=== PATIENT | male | born 1995 | race Two or more races ===

== ENCOUNTER 2020-04-19 23:58 | Emergency (ER) | payer MEDICAID, OTHER ==
[~2020-04-19] VITALS: Ht 167.6 cm; Wt 64.9 kg
[2020-04-20 00:21] VITALS: BP 121/80
[2020-04-20 01:48] LABS: Urine Bacteria NONE SEEN /hpf (None Seen); Urine Blood Negative /uL (Negative); Urine Specific Gravity 1.016 (1.001-1.035); Urine WBC 1 /hpf (0 - 3)
[2020-04-20 01:59] LABS: Alcohol, Urine < 3.0 mg/dL (0-10); Amphetamine Screen, Urine NEGATIVE (NEGATIVE); Barbiturate Scree,Urine NEGATIVE (NEGATIVE); Benzodiazephine Screen, Urine NEGATIVE (NEGATIVE); Cannabinoid Screen, Urine NEGATIVE (NEGATIVE); Cocaine Screen, Urine NEGATIVE (NEGATIVE); Opiate Scree,Urine NEGATIVE (NEGATIVE); Phencyclidine Screen, Urine NEGATIVE (NEGATIVE)
== END 2020-04-20 03:30 | disposition left against medical advice (07) ==
LOC: EDBD 04-20 00:03 → ER 04-20 00:03
DX: R10.9 Unspecified abdominal pain (principal); R53.1 Weakness; R11.2 Nausea with vomiting, unspecified; Z53.21 Procedure and treatment not carried out due to patient leaving prior to being seen by health care provider
CPT/HCPCS: 80307; 81001